=== PATIENT | male | born 1995 | race Caucasian/White ===

== ENCOUNTER 2017-12-14 08:47 | Emergency (ER) | END 2017-12-14 13:54 | disposition short-term general hospital (02) ==

== ENCOUNTER 2017-12-18 10:19 | Emergency (ER) | END 2017-12-18 11:13 | disposition home or self-care (01) ==

== ENCOUNTER 2017-12-22 08:38 | Emergency (ER) | END 2017-12-22 09:55 | disposition home or self-care (01) ==